=== PATIENT | male | born 1995 | race Caucasian/White ===

== ENCOUNTER 2017-11-03 22:31 | Emergency (ER) | payer OTHER ==
[~2017-11-03] VITALS: Ht 170.2 cm; Wt 80.7 kg
[~2017-11-03 22:31] MED LIST: DOXY50CA27 PO; FLUO-202 PO; KET10 PO; ONDA4TAB9 PO; PER PO; TAMS0.4C25 PO
--- NOTE | 2017-11-03 22:33 | ER Report ---
History and Physical Time Seen By MD: 22:33 HPI/ROS CHIEF COMPLAINT: Right flank pain HISTORY OF PRESENT ILLNESS: 22-year-old male with a history of renal stones presents ambulatory to the ER complaining of right flank pain for one week. Patient notes no hematuria. He states this feels similar to his previous kidney stones. Patient had an appointment with urology on Saturday but the urology office called and canceled. Patient has been rescheduled for next Saturday. Patient notes intermittent nausea, subjective fever and chills. He's had no actual vomiting or diarrhea. He notes no dysuria, frequency or hematuria. REVIEW OF SYSTEMS: Respiratory: No cough, no dyspnea. Cardiovascular: No chest pain, no palpitations. Gastrointestinal: As above Musculoskeletal: As above Allergies: Coded Allergies: No Known Drug Allergies (Unverified , 11/03/17) Home Meds Active Scripts Cephalexin 500 Mg Tab (KEFLEX 500 MG TAB) 500 Mg Tablet, 500 MG PO TID for infection, #20 TAB Prov:NIEVES TRACY DO 11/04/17 Hydrocodone Bit/Acetaminophen (NORCO 5-325 TABLET) 1 Each Tablet, 1 EACH PO Q4H Y for PAIN, #12 TAB Prov:NIEVES TRACY DO 11/04/17 Ondansetron (ZOFRAN ODT) 4 Mg Tab.rapdis, 4 MG PO every 6 hours Y for NAUSEA/ VOMITING, #10 TAB TAKE 1 TABLET BY MOUTH EVERY 12 HOURS Prov:NIEVES TRACY DO 11/04/17 Reported Medications Hydrochlorothiazide (HYDROCHLOROTHIAZIDE) 12.5 Mg Capsule, 5 MG PO QDAY, CAPSULE 11/03/17 Potassium Citrate Monohydrate (POTASSIUM CITRATE) 2,500 Gm Powder, 1080 MG PO BID 11/03/17 Fluoxetine Hcl (PROZAC) 20 Mg Capsule, 20 MG PO QDAY, CAPSULE 06/19/15 Discontinued Reported Medications Doxycycline Hyclate (DOXYCYCLINE HYCLATE) 50 Mg Capsule, 50 MG PO BID, CAPSULE 06/19/15 Discontinued Scripts Ketorolac Tromethamine (KETOROLAC TROMETHAMINE) 10 Mg Tab, 10 MG PO TID, #12 TAB TAKE ONE TABLET BY MOUTH 3 TIMES A DAY FOR PAIN Prov:DANE MCKINNEY [employer] 06/19/15 Oxycodone/Acetaminophen (OXYCODONE/ACETAMINOPHEN 5MG/325 MG) 5 Mg/325 Mg Tab, 1- 2 TAB PO Q6H, #20 TAB Prov:DANE MCKINNEY [employer] 06/19/15 Reviewed Nurses Notes: Yes Old Medical Records Reviewed: Yes Hx Smoking: No Smoking Status: Never Smoker Hx Substance Use Disorder: No Constitutional Vital Sign - Last 24 Hours 11/03/17 11/03/17 11/04/17 11/04/17 22:40 23:30 00:00 00:09 Temp 98.3 Pulse 110 86 86 16 Resp 14 14 14 16 B/P (MAP) 153/102 148/90 (109) 146/80 (102) 132/85 (101) Pulse Ox 97 97 97 95 O2 Delivery Room Air Room Air Room Air Physical Exam Vital signs stable, afebrile, mild tachycardia, pulse ox normal General Appearance: The patient is alert, has no immediate need for airway protection and no current signs of toxicity. Skin warm, dry, pink, mild distress Eyes: Pupils equal and round no injection. Respiratory: Chest is non tender, lungs are clear to auscultation. Cardiac: regular rate and rhythm Gastrointestinal: Abdomen is soft and non tender, no masses, bowel sounds normal., Mild right CVA tenderness Musculoskeletal: Neck: Neck is supple and non tender. Extremities have full range of motion and are non tender. Skin: No rashes or lesions. DIFFERENTIAL DIAGNOSIS: After history and physical exam differential diagnosis was considered for flank pain including but not limited to musculoskeletal causes, kidney stone, pyelonephritis, shingles, cholecystitis and intra- abdominal causes such as diverticulitis and appendicitis. Medical Decision Making Data Points Laboratory Hematology Test 11/03/17 22:34 Urine Color Colorless Urine Clarity Clear Urine pH 7.0 pH (4.8-9.5) Urine Specific [place] 1.001 Urine Protein Negative mg/dL (NEGATIVE) Urine Glucose (UA) Negative mg/dL (NEGATIVE) Urine Ketones Negative mg/dL (NEGATIVE) Urine Blood Negative (NEGATIVE) Urine Nitrite Negative (NEGATIVE) Urine Bilirubin Negative (NEGATIVE) Urine Urobilinogen Negative mg/dL (0.2-1.9) Urine Leukocyte Esterase Negative (NEGATIVE) Urine RBC None /HPF (0-2/HPF) Urine WBC None /HPF (0-5/HPF) Urine Squamous Epithelial Cells None /LPF (</=FEW) Urine Bacteria Negative /HPF (NONE-FEW) Urine Mucus None /HPF (NONE-FEW) Chemistry Test 11/03/17 22:34 Urine Color Colorless Urine Clarity Clear Urine pH 7.0 pH (4.8-9.5) Urine Specific [place] 1.001 Urine Protein Negative mg/dL (NEGATIVE) Urine Glucose (UA) Negative mg/dL (NEGATIVE) Urine Ketones Negative mg/dL (NEGATIVE) Urine Blood Negative (NEGATIVE) Urine Nitrite Negative (NEGATIVE) Urine Bilirubin Negative (NEGATIVE) Urine Urobilinogen Negative mg/dL (0.2-1.9) Urine Leukocyte Esterase Negative (NEGATIVE) Urine RBC None /HPF (0-2/HPF) Urine WBC None /HPF (0-5/HPF) Urine Squamous Epithelial Cells None /LPF (</=FEW) Urine Bacteria Negative /HPF (NONE-FEW) Urine Mucus None /HPF (NONE-FEW) Urinalysis Test 11/03/17 22:34 Urine Color Colorless Urine Clarity Clear Urine pH 7.0 pH (4.8-9.5) Urine Specific [place] 1.001 Urine Protein Negative mg/dL (NEGATIVE) Urine Glucose (UA) Negative mg/dL (NEGATIVE) Urine Ketones Negative mg/dL (NEGATIVE) Urine Blood Negative (NEGATIVE) Urine Nitrite Negative (NEGATIVE) Urine Bilirubin Negative (NEGATIVE) Urine Urobilinogen Negative mg/dL (0.2-1.9) Urine Leukocyte Esterase Negative (NEGATIVE) Urine RBC None /HPF (0-2/HPF) Urine WBC None /HPF (0-5/HPF) Urine Squamous Epithelial Cells None /LPF (</=FEW) Urine Bacteria Negative /HPF (NONE-FEW) Urine Mucus None /HPF (NONE-FEW) EKG/Imaging Imaging Results: CT scan of the abdomen and pelvis without contrast was obtained. The results of the study are CT of the abdomen and pelvis without contrast: Indication: Right flank pain. History of nephrolithiasis. Technique: Helical CT was performed through the abdomen and pelvis without contrast. Multiplanar reconstructions are reviewed. One of the following dose optimization techniques was utilized in the performance of this exam: Automated exposure control; adjustment of the mA and/ or kV according to the patient's size; or use of an iterative reconstruction technique. Specific details can be referenced in the facility's radiology CT exam operational policy. Comparison: 06/05/2016 Lower lung brandon: No focal parenchymal or pleural abnormality is identified. Liver: Normal in size, shape, and density. Gallbladder/biliary tree: The gallbladder is normal in size and homogeneous in density. The bile ducts are normal in caliber. Pancreas: Normal in size, shape, and density. Spleen: Normal in size, shape, and density. Tiny accessory spleens are incidentally noted. Adrenal glands: Within normal limits. Kidneys/urinary bladder: A few tiny nonobstructing calculi are present in the right kidney. The right kidney is otherwise unremarkable and unchanged. There is mild dilatation of the right intrarenal collecting structures and right ureter. No opaque calculus is clearly identified within the right ureter or within the lumen of the urinary bladder. The findings suggest residual edema at the ureterovesical junction from a recently passed calculus. Additional clinical correlation is advised. The left kidney appears unremarkable and unchanged. No opaque calculi are identified in the left kidney or ureter. Intestinal structures: Unremarkable, as visualized. There are no signs of obstruction or focal inflammatory changes. The appendix appears normal. Pelvis: Unremarkable. Aorta and vascular structures: Within normal limits. Ascites or fluid collections: None seen. Skeletal structures: Intact and unremarkable. Impression: A few tiny nonobstructing calculi are observed in the right kidney. The right intrarenal collecting structures and right ureter are dilated. No opaque calculus is clearly identified within the right ureter or bladder lumen. The findings suggest residual edema at the right ureterovesical junction secondary to a recently passed calculus. The study was read by the radiologist. I viewed the images myself on the PACS system. ED Course/Re-evaluation ED Course Patient was admitted to an examination room. H&P was done. The differential diagnoses was considered. On clinical examination. Patient has right flank pain with CVA tenderness worrisome for renal stone. Patient's offered an IV, and medication but he declines. A CT scan of the abdomen and pelvis is ordered. A urinalysis is performed which shows no hematuria. The CAT scan shows dilation of the right ureter and edema suspicious for a recently passed stone. Patient will follow up with urology next week. He has an appointment with his primary care Dr. Robbins. Patient be covered with Keflex for potential infection. He'll be given Zofran and [place] for temporary symptom relief. Patient's also advised to take ibuprofen 600 mg 3 times daily. Decision to Disposition Date: Nov 03, 2017 Decision to Disposition Time: 23:58 Depart Departure Latest Vital Signs Vital Signs Date Time Temp Pulse Resp B/P (MAP) Pulse Ox O2 Delivery O2 Flow Rate FiO2 11/04/17 00:09 16 16 132/85 (101) 95 Room Air 11/03/17 22:40 98.3 Impression: Primary Impression: Right flank pain Additional Impression: Nausea Condition: Improved Disposition: HOME OR SELF-CARE New Scripts Cephalexin 500 Mg Tab (KEFLEX 500 MG TAB) 500 Mg Tablet 500 MG PO TID for infection, #20 TAB Prov: NIEVES TRACY DO 11/04/17 Hydrocodone Bit/Acetaminophen (NORCO 5-325 TABLET) 1 Each Tablet 1 EACH PO Q4H Y for PAIN, #12 TAB Prov: NIEVES TRACY DO 11/04/17 Ondansetron (ZOFRAN ODT) 4 Mg Tab.rapdis 4 MG PO every 6 hours Y for NAUSEA/VOMITING, #10 TAB TAKE 1 TABLET BY MOUTH EVERY 12 HOURS Prov: NIEVES TRACY DO 11/04/17 Patient Instructions: Flank Pain (ED) Additional Instructions: Take ibuprofen 200 mg 3 tablets 3 times a day or Aleve 220 mg 2 tablets twice daily with food Plenty of fluids Follow-up with your primary care Dr. Robbins as planned tomorrow and urology on Saturday Problem Qualifiers NIEVES TRACY DO Nov 03, 2017 22:33
[2017-11-03] MEDS ORDERED: HYDR12.556 PO (22:45)
[2017-11-03] MEDS ORDERED: [UNRECOGNIZED DRUG - CODE] PO (22:45)
--- NOTE | 2017-11-03 23:49 | RADIOLOGY IMAGING REPORT ---
FACILITY: [facility] - [place] PATIENT NAME: Thang Saeed : 1995 MR: [id number] V: [id number] EXAM DATE: ORDERING PHYSICIAN: NIEVES TRACY TECHNOLOGIST: Location: [facility] Patient: Thang Saeed : 1995 Visit/Account:[id number] Date of Sevice: 11/03/2017 CT of the abdomen and pelvis without contrast: Indication: Right flank pain. History of nephrolithiasis. Technique: Helical CT was performed through the abdomen and pelvis without contrast. Multiplanar rec onstructions are reviewed. One of the following dose optimization techniques was utilized in the performance of this exam: Autom ated exposure control; adjustment of the mA and/or kV according to the patient's size; or use of an i terative reconstruction technique. Specific details can be referenced in the facility's radiology C T exam operational policy. Comparison: 06/05/2016 Lower lung brandon: No focal parenchymal or pleural abnormality is identified. Liver: Normal in size, shape, and density. Gallbladder/biliary tree: The gallbladder is normal in size and homogeneous in density. The bile duct s are normal in caliber. Pancreas: Normal in size, shape, and density. Spleen: Normal in size, shape, and density. Tiny accessory spleens are incidentally noted. Adrenal glands: Within normal limits. Kidneys/urinary bladder: A few tiny nonobstructing calculi are present in the right kidney. The right kidney is otherwise unremarkable and unchanged. There is mild dilatation of the right intrarenal col lecting structures and right ureter. No opaque calculus is clearly identified within the right ureter or within the lumen of the urinary bladder. The findings suggest residual edema at the ureterovesica l junction from a recently passed calculus. Additional clinical correlation is advised. The left kidney appears unremarkable and unchanged. No opaque calculi are identified in the left kidn ey or ureter. Intestinal structures: Unremarkable, as visualized. There are no signs of obstruction or focal inflam matory changes. The appendix appears normal. Pelvis: Unremarkable. Aorta and vascular structures: Within normal limits. Ascites or fluid collections: None seen. Skeletal structures: Intact and unremarkable. Impression: A few tiny nonobstructing calculi are observed in the right kidney. The right intrarenal collecting structures and right ureter are dilated. No opaque calculus is clearly identified within t he right ureter or bladder lumen. The findings suggest residual edema at the right ureterovesical duane ction secondary to a recently passed calculus. Report Dictated By: Justin Akins MD at 11/03/2017 11:32 PM Report E-Signed By: Justin Akins MD at 11/03/2017 11:47 PM WSN:[id number]
[2017-11-04] MEDS ORDERED: ONDA4TAB PO
[2017-11-04] MEDS ORDERED: HYDR-4309 PO
[2017-11-04] MEDS ORDERED: CEPH500T7 PO
[2017-11-04] MEDS ORDERED: CEPHALEXIN MONO 500 MG CAP PO ONE (00:05)
[2017-11-04] MEDS ORDERED: ACET/HYDROC 5/325MG TH ER ONLY 2 TAB/BOTTLE PO ONE (00:05)
[2017-11-04] MEDS ORDERED: ONDANSETRON 4 MG ODT TH SL ONE (00:05)
[2017-11-04 00:09] VITALS: BP 132/85
== END 2017-11-04 00:12 | disposition home or self-care (01) ==
LOC: ER 22:47
DX: M54.9 Dorsalgia, unspecified (principal); R11.0 Nausea
CPT/HCPCS: 74176; 81001; 99283; S0119

== ENCOUNTER → 2018-01-02 | Outpatient (CLI) | payer OTHER ==
[~2018-01-02] MED LIST changes: +CEPH500T7 PO; +HYDR-4309 PO; +HYDR12.556 PO; +ONDA4TAB PO; +[UNRECOGNIZED DRUG - CODE] PO
== END ==
LOC: AMB 20:42
PROVIDERS: ATTEND Nurse Practitioner
DX: R10.9 Unspecified abdominal pain (principal)
CPT/HCPCS: A0425; A0427

== ENCOUNTER → 2018-06-25 | Outpatient (CLI) | payer OTHER ==
--- NOTE | 2018-06-25 14:27 | RADIOLOGY IMAGING REPORT ---
FACILITY: [facility] - [place] PATIENT NAME: Thang Saeed : 1995 MR: [id number] V: [id number] EXAM DATE: ORDERING PHYSICIAN: RIA VIDALES TECHNOLOGIST: Location: [facility] Patient: Thang Saeed : 1995 Visit/Account:[id number] Date of Sevice: 06/25/2018 Exam type: ORBITS FOREIGN BODY 1 VIEW History: Pre-MRI screening Comparison: None. Findings: No radiopaque metallic foreign bodies project over the orbits IMPRESSION: 1. No radiopaque foreign bodies project over the orbits Report Dictated By: Gloria Raya MD at 06/25/2018 2:21 PM Report E-Signed By: Gloria Raya MD at 06/25/2018 2:21 PM WSN:[id number]
--- NOTE | 2018-06-25 16:21 | RADIOLOGY IMAGING REPORT ---
FACILITY: [facility] - [place] PATIENT NAME: Thang Saeed : 1995 MR: [id number] V: [id number] EXAM DATE: ORDERING PHYSICIAN: RIA VIDALES TECHNOLOGIST: Location: [facility] Patient: Thang Saeed : 1995 Visit/Account:[id number] Date of Sevice: 06/25/2018 EXAMINATION: MRI brain without IV contrast HISTORY: Postconcussion syndrome. COMPARISON: None. TECHNIQUE: Multi-planar, multi-sequence brain MRI was performed without IV contrast. FINDINGS: Brain volume: Normal. Sagittal midline structures: Sagittal midline structures are normally formed. The cerebellar tonsils are normal in position. Ventricles: Normal. Acute ischemic changes: No diffusion restriction present to suggest acute ischemia. Hemorrhage: No acute hemorrhage or hemosiderin staining. Masses/edema: None. Yusuf-white: There is normal yusuf-white differentiation. White matter: Normal. Vessels: Normal. Extra-axial: None. Calvarium/scalp: Negative. Skull base: Negative. Visualized sinuses/orbits: Minimal mucosal thickening in the bilateral ethmoid air cells. Mild nasal septal deviation to the right. Visualized upper neck: Negative. IMPRESSION: No acute infarct, hemorrhage or intracranial mass lesion. No posttraumatic encephalomalacia or gliosi s. Report Dictated By: Alycia Gracia MD at 06/25/2018 4:15 PM Report E-Signed By: Alycia Gracia MD at 06/25/2018 4:17 PM WSN:[id number]
== END ==
LOC: MRI 02:39
PROVIDERS: ATTEND Family Medicine
DX: F07.81 Postconcussional syndrome (principal)
CPT/HCPCS: 70030; 70551